=== PATIENT | male | born 1965 | race Caucasian/White ===

== ENCOUNTER 2019-03-09 12:06 | Emergency (ER) | payer SELFPAY ==
[~2019-03-09] VITALS: Ht 182.9 cm; Wt 100.0 kg
[2019-03-09] MEDS ORDERED: MORPHINE SULFATE 4 MG/ML CPJ (NOT FOR IM USE) IV STA (15:06)
[2019-03-09] MEDS ORDERED: ONDANSETRON HCL 4MG/2ML INJ IV STA (15:06)
[2019-03-09 15:23] LABS: BASOPHILS % 0.5 % (0.0-2.0); EOSINOPHILS % 0.2 % (0.0-5.0); HEMATOCRIT. 37.9 % (42.0-52.0); HEMOGLOBIN. 12.3 g/dL (14.0-18.0); LYMPHOCYTES % 9.1 % (20.0-50.0); MEAN CORPUSCULAR HEMOGLOBIN 23.5 pg (28.0-32.0); MEAN CORPUSCULAR VOLUME 72.2 fL (80.0-94.0); MEAN PLATELET VOLUME 6.6 fl (7.4-10.4); MONOCYTES % 5.6 % (2.0-8.0); NEUTROPHILS % 84.6 % (40.0-76.0); PLATELET 290 x1000/uL (130-400); RED BLOOD CELL COUNT 5.25 mill/uL (4.7-6.1)
[2019-03-09 15:30] LABS: CHLORIDE 98 mEq/L (98-107); INR 1.3; PROTHROMBIN TIME 13.3 sec (9.6-11.0)
[2019-03-09] MEDS ORDERED: POTASSIUM CHLORIDE 20MEQ TABLET SR PO ONE (16:00)
[2019-03-09] MEDS ORDERED: MORPHINE SULFATE 4 MG/ML CPJ (NOT FOR IM USE) IV ONE (17:30)
[2019-03-09] MEDS ORDERED: ONDANSETRON HCL 4MG/2ML INJ IV ONE (17:30)
[2019-03-09] MEDS ORDERED: CEFTRIAXONE 1 G PREMIX 50 ML IV ONE (17:45)
[2019-03-09] MEDS ORDERED: METRONIDAZOLE 500 MG PREMIX 100 ML IV ONE (17:45)
[2019-03-09] MEDS ORDERED: IOHEXOL-300 100 ML BOTTLE ONE (18:06)
[2019-03-09 20:31] VITALS: BP 135/84
== END 2019-03-09 20:32 | disposition left against medical advice (07) ==
LOC: ER 15:48 → EDBEDREQTM 19:38 → EDBEDREQ 19:38 → ER 20:32 → ENRESERV 21:11 → CANRESERV 21:11 → CANBEDREQ 03-10 01:40
DX: L76.82 Other postprocedural complications of skin and subcutaneous tissue (principal); T81.41XA Infection following a procedure, superficial incisional surgical site, initial encounter; Z85.038 Personal history of other malignant neoplasm of large intestine; Z43.3 Encounter for attention to colostomy; Z90.49 Acquired absence of other specified parts of digestive tract; Y83.8 Other surgical procedures as the cause of abnormal reaction of the patient, or of later complication, without mention of misadventure at the time of the procedure; Y92.018 Other place in single-family (private) house as the place of occurrence of the external cause
CPT/HCPCS: 36415; 74177; 80053; 83605; 85025; 85610; 87040; 96365; 96367; 96375; 96376; 99284; J0696; J2270; J2405; J3490; Q9967; Z7610